=== PATIENT | male | born 1960 | race Caucasian/White ===

== ENCOUNTER → 2019-05-02 08:08 | Outpatient (BNVA) | payer BC, SELFPAY | PROVIDERS: Family Provider Nurse Practitioner; PCP Nurse Practitioner; Visit Provider Urology | DX: R97.20 Elevated prostate specific antigen [PSA] (principal); N40.1 Benign prostatic hyperplasia with lower urinary tract symptoms | CPT/HCPCS: 81001 ==

== ENCOUNTER → 2019-11-01 09:01 | Outpatient (BNVA) | payer BC, SELFPAY | PROVIDERS: Family Provider Nurse Practitioner; PCP Nurse Practitioner; Visit Provider Urology | DX: R97.20 Elevated prostate specific antigen [PSA] (principal) | CPT/HCPCS: 81001 ==

== ENCOUNTER → 2020-06-25 08:17 | Outpatient (BNVA) | payer BC, SELFPAY | PROVIDERS: Family Provider Nurse Practitioner; PCP Nurse Practitioner; Visit Provider Urology | DX: N39.9 Disorder of urinary system, unspecified (principal); R97.20 Elevated prostate specific antigen [PSA]; N40.1 Benign prostatic hyperplasia with lower urinary tract symptoms | CPT/HCPCS: 81003; 84153 ==

== ENCOUNTER → 2020-09-24 07:57 | Outpatient (BNVA) | payer BC, SELFPAY | PROVIDERS: Family Provider Nurse Practitioner; PCP Nurse Practitioner; Visit Provider Urology | DX: N40.1 Benign prostatic hyperplasia with lower urinary tract symptoms (principal); R97.20 Elevated prostate specific antigen [PSA] | CPT/HCPCS: 81003 ==

== ENCOUNTER → 2020-12-23 10:08 | Outpatient (BNVA) | payer BC, SELFPAY | PROVIDERS: Family Provider Nurse Practitioner; PCP Nurse Practitioner; Visit Provider Urology | DX: N40.1 Benign prostatic hyperplasia with lower urinary tract symptoms (principal); R97.20 Elevated prostate specific antigen [PSA] | CPT/HCPCS: 81003; 87635 ==

== ENCOUNTER 2020-12-27 12:12 | Day surgery (SDC) | payer BC, SELFPAY ==
[2020-12-26 15:50] VITALS: BMI 33.2
[2020-12-27] VITALS (8 sets, daily range): BP systolic 92–187; BP diastolic 60–111; PULSE 74–114; RESP 12–21; TEMP 36.1–36.7; O2SAT 92–99
[2020-12-27] MEDS: sodium chloride 0.9% 1,000 ML 30 ML IV (12:54)
[2020-12-27] MEDS: ondansetron 2 mg/ML SDV 2 mL 4 MG IVP (13:06)
[2020-12-27] MEDS: HYDROmorphone 1 mg/mL INJ 1 mL 0.5 MG IVP (13:10)
--- NOTE | 2020-12-27 13:14 | ANES.PREANE2 ---
Pre-Anesthetic Assessment Pre-Anesthetic Assessment: Height/Weight: Height 1.8 m Weight 107.955 kg Temp Pulse Resp BP Pulse Ox 98.0 F 114 H 21 H 187/111 99 12/27/20 12:30 12/27/20 12:30 12/27/20 12:30 12/27/20 12:30 12/27/20 13:10 Preop Diagnosis: Elevated PSA Proposed Procedure: Operation Date: 12/27/20 13:45 Proposed Procedures p Transrectal Ultrasound Prostate W/Biospy 03694 [id number] R97.20(Not Applicable) - Armond Richardson MD Was Beta Lashanda taken within 24 hours: N/A Was Clonidine taken within 24 hours: N/A Last intake: Intake Last Liquid Date 12/26/20 Last Liquid Time 08:00 Last Solid Date 12/26/20 Last Solid Time 21:00 Social: Social History: No alcohol and No tobacco Exam: Pre-Anes Outpt Exam: alert, oriented x 3, clear to auscultation bilaterally and regular rate & rhythm Airway: Submandibular: WNL Cervical ROM: WNL MP: 2 Dentition: Full CV/HEM: CV/HEM: HTN Metabolic: Metabolic: Thyroid Neuropsych: Neuropsych: Anxiety Anesthetic Plan: ASA status: 3 Anesthesia: General Risk of > 500 ml blood loss (7ml/kg in children): No Meds/Allergies Current Medications: Current Medications Generic Name Dose Route Start Last Admin Trade Name Freq PRN Reason Stop Dose Admin Sodium Chloride 1,000 mls @ 30 ml s/hr 12/27/20 12:30 12/27/20 12:54 Sodium Chloride 0.9% IV 12/28/20 12:29 30 mls/hr .Q24H CHRISTINA Administration Ondansetron HCl 4 mg 12/27/20 12:30 12/27/20 13:06 Ondansetron 2 Mg /Ml Sdv 2 Ml IVP 4 mg Q5M PRN Administration NAUSEA AND VOMITI NG PFSH Anesthesia PFSH: Medical History (Updated 12/23/20 @ 11:26 by Armond Richardson MD) Benign prostatic hyperplasia with lower urinary tract symptoms Elevated PSA Surgical History History of dental surgery gum History of tonsillectomy History of vasectomy Hx of local excision of skin lesion skin tag on rectum excised Family History Father , at age 77 Stroke Mother Breast cancer Social History Alcohol intake: never Marital status: Current occupational status: retired History of recent travel: No Current gender identity: Male Data Anesthesia Cardiac Studies: No Data to Display
[2020-12-27] MEDS: diphenhydrAMINE 50 mg/mL SDV 1mL 12.5 MG IVP (13:19)
[2020-12-27] MEDS: midazolam 1 mg/mL INJ 2 mL 2 MG IVP (13:23)
[2020-12-27] MEDS: levofloxacin-dextrose 5 % 500 MG/100 ML PREMIX 100 MG IV (14:41)
--- NOTE | 2020-12-27 15:21 | P.OP_ITS ---
Operative Report Date of procedure: December 27, 2020 Pre-op Diagnosis: Elevated PSA Post-op diagnosis: same Procedure Done: 1. Transrectal ultrasound the prostate 2. Transrectal ultrasound guidance for prostate biopsy 3. Prostate biopsy Pathology: Prostate biopsies Surgeon: Dylan Monomer Recovery Operator: Natacha Quintana Anesthesia: MAC Estimated blood loss: Minimal Urine output: Not measured Complications: None Findings: 1. Volume =72 cc 2. No obvious hypoechoic areas 3. Grossly normal anatomy with enlarged transitional zone. Condition: stable Disposition: PACU Brief History: Vasyl is a very pleasant 60-year-old white male with a history of increasing PSA without prostate nodule. Has been reluctant to consider biopsy historically but with rising PSA elected to proceed but required anesthesia due to anxiety related to the procedure. Procedure: After routine preoperative evaluation examination and obtaining of informed consent he was taken to the operating suite on 12/27/2020 where MAC anesthesia was administered without difficulty. He was placed in left lateral position. RICHIE was performed. No nodularity was noted. Transrectal ultrasound probe was then introduced into the rectum and the prostate was examined carefully in both transverse and sagittal views. Measurements were obtained and volume calculated at about 72 cc. Transrectal ultrasound revealed no evidence of hypoechoic lesions. There was enlargement of the transitional zone. No other anatomic abnormalities were identified. The prostate was then biopsied sequentially utilizing grid fashion with biopsies including the left lateral apex mid and base, left apex mid and base, right lateral apex mid and base, and right apex mid base. Bleeding was minimal. He tolerated procedure well without complications and was awakened in the operating room and returned to outpatient surgery in stable condition. Plans: 1. Anticipate discharge from outpatient surgery today 2. Speak over the phone next week for results 3. Follow-up in 3 months if no evidence of prostate cancer. Schedule prostate cancer talk possible imaging if prostate cancer is identified.
--- NOTE | 2020-12-27 15:21 | P.HPUD_ITS ---
Surgery/Procedure H&P Update DATE OF PROCEDURE: December 27, 2020 DATE H&P PERFORMED: 12/23/20 H&P UPDATE INFORMATION: I have reviewed H&P completed within last 30 days, I have examined patient prior to procedure, No changes to prior documentation and H&P is in [facility] EMR on date indicated PREOP DIAGNOSIS: Elevated PSA PLANNED PROCEDURE: Operation Date: 12/27/20 13:45 Proposed Procedures p Transrectal Ultrasound Prostate W/Biospy [id number] R97.20(Not Applicable) - Armond Richardson MD
== END 2020-12-27 17:26 | disposition home or self-care (01) ==
PROVIDERS: PCP Nurse Practitioner; Visit Provider Urology
PROC: 0VB03ZX Excision of Prostate, Percutaneous Approach, Diagnostic (ICD-10-PCS; CPT 76942; principal; 2020-12-27 13:35)
DX: R97.20 Elevated prostate specific antigen [PSA] (principal); F41.9 Anxiety disorder, unspecified; N40.1 Benign prostatic hyperplasia with lower urinary tract symptoms; R39.11 Hesitancy of micturition; R39.14 Feeling of incomplete bladder emptying; R39.12 Poor urinary stream; R35.0 Frequency of micturition; I10 Essential (primary) hypertension
CPT/HCPCS: 55705; 88305; 96374; 96375; J1170; J1200; J1956; J2250; J2405; J2704; J3010; J7030

== ENCOUNTER → 2021-06-26 10:35 | Outpatient (BNVA) | payer BC, SELFPAY | PROVIDERS: PCP Nurse Practitioner; Visit Provider Urology | DX: R97.20 Elevated prostate specific antigen [PSA] (principal); N40.1 Benign prostatic hyperplasia with lower urinary tract symptoms; F41.9 Anxiety disorder, unspecified | CPT/HCPCS: 81003 ==

== ENCOUNTER → 2022-01-15 14:46 | Outpatient (BNVA) | payer BC, SELFPAY | PROVIDERS: PCP Nurse Practitioner Family; Visit Provider Urology | DX: N40.1 Benign prostatic hyperplasia with lower urinary tract symptoms (principal); R97.20 Elevated prostate specific antigen [PSA] | CPT/HCPCS: 81003 ==

== ENCOUNTER 2022-01-21 07:09 | Outpatient (CLI) | payer BC, SELFPAY ==
--- NOTE | 2022-01-21 07:24 | US_ITS ---
WS: [id number] RIGHT UPPER QUADRANT ULTRASOUND HISTORY: ELEVATED AST LEVELS COMPARISON: 09/20/2017 Liver: 14.5 cm in length. Normal size liver. No bile duct dilatation. There are a few scattered cysts . No mass. The largest cyst with a maximum diameter of 1.9 cm. Portal Vein: Normal hepatopetal flow with monophasic waveform. Gallbladder: Normally distended gallbladder with large stones. There are several stones measuring up to 2.9 cm in diameter. No pericholecystic fluid. CBD: 0.3 cm Pancreas: Partially visualized. No abnormality identified. Right kidney: 11.1 cm in length. Normal size kidney. Again noted is a cyst in the lower pole measurin g 5.0 x 4.1 x 5.5 cm. Aorta and IVC: Unremarkable abdominal aorta and IVC. No ascites. US/US abdomen limited [id number] IMPRESSION: 1. Cholelithiasis. Large stones in the gallbladder lumen. 2. Normal size liver with a few small scattered hepatic cysts. No solid mass. 3. RIGHT renal cyst. Similar to the prior study from 2018.
== END 2022-01-21 07:10 | disposition home or self-care (01) ==
PROVIDERS: PCP Nurse Practitioner Family; Visit Provider Nurse Practitioner Family
DX: R74.01 Elevation of levels of liver transaminase levels (principal); K80.20 Calculus of gallbladder without cholecystitis without obstruction; K76.89 Other specified diseases of liver; N28.1 Cyst of kidney, acquired
CPT/HCPCS: 76705

== ENCOUNTER → 2022-07-14 15:04 | Outpatient (BNVA) | payer BC, SELFPAY | PROVIDERS: PCP Nurse Practitioner Family; Visit Provider Urology | DX: N40.1 Benign prostatic hyperplasia with lower urinary tract symptoms (principal) | CPT/HCPCS: 81003 ==